=== PATIENT | male | born 1975 | race Two or more races ===

== ENCOUNTER 2018-10-28 20:12 | Emergency (ER) | payer SELFPAY ==
[~2018-10-28] VITALS: Ht 165.1 cm; Wt 81.6 kg
[2018-10-29 03:40] VITALS: BP 140/84
[2018-10-29] MEDS ORDERED: ACETAMINOPHEN/CODEINE#3 (300/30mg) TAB PO ONE (03:45)
[2018-10-29] MEDS ORDERED: BUPIVACAINE 0.5% P/F INJ 10 ML VIAL ONE (05:06)
[2018-10-29] MEDS ORDERED: BUPIVACAINE 0.25% INJ 50ML VIAL ONE (05:06)
[2018-10-29] MEDS ORDERED: cefTRIAXone SOD 1,000 MG VL IM ONE (06:00)
[2018-10-29] MEDS ORDERED: BACITRACIN TOP OINT 1 UD PKG TOP ONE (06:00)
[2018-10-29] MEDS ORDERED: cefTRIAXone SOD 1,000 MG VL ONE (06:11)
== END 2018-10-29 06:41 | disposition home or self-care (01) ==
LOC: ER 20:18
DX: S62.632A Displaced fracture of distal phalanx of right middle finger, initial encounter for closed fracture (principal); F12.10 Cannabis abuse, uncomplicated; W54.0XXA Bitten by dog, initial encounter; Y93.89 Activity, other specified; Y99.8 Other external cause status; Y92.89 Other specified places as the place of occurrence of the external cause
CPT/HCPCS: 11730; 29130; 73140; 96372; 99283; J0696; J3490